=== PATIENT | male | born 1960 | race Caucasian/White ===

== ENCOUNTER → 2022-03-05 16:46 | Outpatient (BNVA) | payer SELFPAY | PROVIDERS: Visit Provider Nurse Practitioner Family | DX: M54.50 Low back pain, unspecified (principal); Z13.6 Encounter for screening for cardiovascular disorders; R59.1 Generalized enlarged lymph nodes | CPT/HCPCS: 80053; 80061; 85025 ==

== ENCOUNTER 2022-05-16 12:48 | Outpatient (CLI) | payer MEDICAID, SELFPAY ==
--- NOTE | 2022-05-16 13:30 | US_ITS ---
WS: [id number] Subcutaneous ultrasound of the right neck. Clinical Data: R59.1 - Generalized enlarged lymph nodes Comparison: None. Findings: There is a subcutaneous nodule in the palpable region measuring 3.39 cm. The nodule has a smooth well -defined border with multiple echoes inside. No cysts are seen. US/US soft tissue head neck [id number] Impression: Well-defined subcutaneous nodule in the right neck which could represent any on e of a number of soft tissue diagnoses such as fibroma and many others.
--- NOTE | 2022-05-16 14:30 | MR_ITS ---
WS: [id number] MRI LUMBAR SPINE NONCONTRAST TECHNIQUE: Sagittal T1, T2 and STIR imaging. Axial T1 and T2 imaging. CLINICAL INFORMATION: M54.42 - Lumbago with sciatica, left side COMPARISON: None. FINDINGS: Mild lumbar curve. No acute compression. No high-grade central canal stenosis. Slight anterolisthesis L4 on L5. Mild chronic anterior wedging lower thoracic spine. RIGHT renal cortical cyst measuring 2.1 CM. Small disc osteophyte protrusions in the cervical spine a nd thoracic spine seen on the detail drafter imaging with mild multilevel central canal stenosis. This could b e further evaluated with MRI if clinically indicated. L1-L2: Mild annular bulging. Narrowing of the RIGHT subarticular recess. Mild facet arthropathy. Fora men are patent. L2-L3: Mild annular bulging. Slight impingement on the LEFT greater than RIGHT subarticular recess an d traversing LEFT L3 nerve root. Mild LEFT foraminal narrowing. Moderate facet arthropathy. Mild narr owing of the thecal sac. L3-L4: Mild annular bulging with slight effacement of ventral thecal sac. Mild narrowing of the theca l sac with prominent epidural fat and moderate facet arthropathy ligamentum flavum hypertrophy. Small LEFT foraminal protrusion with mild LEFT foraminal narrowing. RIGHT foramen is patent. L4-L5: Mild disc bulging with slight effacement of ventral thecal sac. Tiny central disc osteophyte p rotrusion. Spinal canal is patent. Mild RIGHT foraminal narrowing. Moderate facet arthropathy L5-S1: Mild facet arthropathy. Spinal canal and foramen are patent. MR/MR lumbar spine wo con* [id number] IMPRESSION: 1. Mild lumbar curve. No acute compression. No high-grade central canal stenos is. 2. Mild narrowing of the thecal sac at L2-L3 and L3-L4 due to mild disc bulgin g in combination with prominent epidural fat. Facet arthropathy and ligamentum flavum hypertrophy contributes to stenosis. 3. Narrowing of the LEFT L2-L3 subarticular recess and impingement traversing LEFT L3 nerve root. In addition slight impingement on the exiting LEFT L2 nerve root with mild LEFT foraminal narrowing. 4. Mild to moderate LEFT L3-L4 foraminal narrowing. 5. Moderate facet arthropathy L3-L4 and L4-L5. 6. Small amount of edema involving the LEFT greater than RIGHT L3-L5 facets wi th small facet effusions compatible with synovitis. Small amount of surrounding periarticular edema worse at L4-L5.
== END 2022-05-16 12:49 | disposition home or self-care (01) ==
LOC: RAD 12:49
PROVIDERS: Visit Provider Nurse Practitioner Family
DX: M54.41 Lumbago with sciatica, right side (principal); M54.42 Lumbago with sciatica, left side; G89.29 Other chronic pain; R60.0 Localized edema; M47.816 Spondylosis without myelopathy or radiculopathy, lumbar region; R59.1 Generalized enlarged lymph nodes
CPT/HCPCS: 72148; 76536

== ENCOUNTER → 2023-09-21 11:53 | Outpatient (BNVA) | payer MEDICAID, SELFPAY | PROVIDERS: PCP Nurse Practitioner Family; Visit Provider Nurse Practitioner Family | DX: Z12.5 Encounter for screening for malignant neoplasm of prostate (principal); M54.42 Lumbago with sciatica, left side; M54.41 Lumbago with sciatica, right side; G89.29 Other chronic pain; Z13.1 Encounter for screening for diabetes mellitus; Z13.6 Encounter for screening for cardiovascular disorders; Z00.00 Encounter for general adult medical examination without abnormal findings; Z12.11 Encounter for screening for malignant neoplasm of colon | CPT/HCPCS: 80053; 80061; 82306; 82607; 83036; 83735; 84443; 85025; G0103 ==

== ENCOUNTER → 2024-07-13 14:07 | Outpatient (BNVA) | payer OTHER, SELFPAY | PROVIDERS: PCP Nurse Practitioner Family; Visit Provider Nurse Practitioner Family | DX: G62.9 Polyneuropathy, unspecified (principal) | CPT/HCPCS: 80053; 80061; 82306; 82607; 82746; 83036; 83735; 84443; 85025 ==